=== PATIENT | female | born 1965 | race Asian ===

== ENCOUNTER 2017-06-13 20:16 | Emergency (ER) | payer SELFPAY ==
[~2017-06-13] VITALS: Ht 165.1 cm; Wt 68.0 kg
--- NOTE | 2017-06-13 20:28 | Emergency Room Report ---
History of Present Illness General Chief Complaint: Overdose Source: Patient, EMS (MARIBEL GARCIA M.D.) Present Illness HPI 51YOF BIBEMS for suspected intentional OD/SI on 0.5mg X10 clonazepam that were her mother's medication Was done at 630 because thats the time she allegedly texted her mother No previous attempts History of depression Denies coingestants, ETOH No other medical problems HPI limited d/t sedation (MARIBEL GARCIA M.D.) Allergies: Coded Allergies: No Known Allergies (Unverified , 06/13/17) Patient History Past Medical History: none, unable to obtain Past Surgical History: none, unable to obtain Pertinent Family History: none, unable to obtain Last Menstrual Period: ukn Now: No Immunizations: UTD Reviewed Nursing Documentation: PMH: Agreed, PSxH: Agreed (MARIBEL GARCIA M.D.) Nursing Documentation-PMH Past Medical History: No History, Except For History Of Psychiatric Problem: Yes - Depression (MARIBEL GARCIA M.D.) Review of Systems All Other Systems: negative except mentioned in HPI (MARIBEL GARCIA M.D.) Physical Exam Vital Signs Date Time Temp Pulse Resp B/P (MAP) Pulse Ox O2 Delivery O2 Flow Rate FiO2 06/13/17 20:08 97.9 80 20 107/56 95 Room Air Sp02 EP Interpretation: reviewed, normal General Appearance: normal inspection, well appearing, no apparent distress, alert Head: normocephalic, atraumatic Eyes: bilateral eye PERRL, bilateral eye EOMI ENT: normal ENT inspection, hearing grossly normal, normal voice Neck: normal inspection, full range of motion, supple, no bony tend Respiratory: normal inspection, lungs clear, normal breath sounds, no respiratory distress, no retraction, no wheezing Cardiovascular #1: regular rate, rhythm, no edema Gastrointestinal: normal inspection, normal bowel sounds, non tender, soft, no guarding, no hernia Genitourinary: no CVA tenderness Musculoskeletal: normal inspection, back normal, normal range of motion, Amanda' s Sign negative Neurologic: normal inspection, alert, oriented x3, responsive, tenant coordinator III-XII nml as tested, motor strength/tone normal, speech normal Psychiatric: normal inspection, judgement/insight normal, mood/affect normal Skin: normal inspection, normal color, no rash Lymphatic: normal inspection (MARIBEL GARCIA M.D.) Medical Decision Making Diagnostic Impression: Primary Impression: Drug overdose Qualified Codes: T50.902A - Poisoning by unspecified drugs, medicaments and biological substances, intentional self-harm, initial encounter Additional Impressions: Alcohol intoxication Qualified Codes: F10.920 - Alcohol use, unspecified with intoxication, uncomplicated Suicidal ideations ER Course VSS. Afebrile ETOH level >300 Urine tox negative for drugs despite endorsed benzo overdose Urine preg negative ASA, tylenol levels negative medically cleared Needs Psych eval when sober for SI Patient continues to express suicidal ideation in ED on multiple evaluation Endorsed to Dr Medrano at 930pm that patient needs psych evaluation for SI when sober. (MARIBEL GARCIA M.D.) ER Course Patient out to me for drug overdose. She was also very intoxicated. She slept in the night without any incident. At one point said that she wants to go home. But she still suicidal. So we'll get psychiatric evaluation. I told patient that she cannot leave. Will sign this patient out to Dr. Goncalves in the morning. she is medically cleared for psychiatric evaluation. (JOSE MEDRANO M.D.) ER Course The patient was reevaluated by me. The patient was noted to have negative drug screen for benzodiazepines. Patient was initially reporting suicidal thoughts however she states she feels better at this time. As she states she did not want to harm herself. The patient appears more sober at this time. Patient will followup with outpatient mental health. (Chris Goncalves) EKG Diagnostic Results Rate: normal Rhythm: NSR ST Segments: no acute changes ASA given to the pt in ED: No (MARIBEL GARCIA M.D.) Rhythm Strip Diag. Results EP Interpretation: yes Rate: 80 Rhythm: NSR, no PVC's, no ectopy (MARIBEL GARCIA M.D.) Last Vital Signs Date Time Temp Pulse Resp B/P (MAP) Pulse Ox O2 Delivery O2 Flow Rate FiO2 06/13/17 20:08 97.9 80 20 107/56 95 Room Air Status: improved (MARIBEL GARCIA M.D.) Status: improved (Chris Goncalves) Condition: Stable MARIBEL GARCIA M.D. Jun 13, 2017 20:28 JOSE MEDRANO M.D. Jun 14, 2017 05:58 Chris Goncalves Jun 14, 2017 08:49
[2017-06-13 20:53] LABS: BASOPHILS % (AUTO) 1.1 % (0.0-2.0); EOSINOPHILS % (AUTO) 2.1 % (0.0-3.0); LYMPHOCYTES % (AUTO) 36.8 % (20.0-45.0); MEAN CORPUSCULAR HEMOGLOBIN 36.1 PG (27.0-31.0); MEAN CORPUSCULAR HGB CONC 34.6 G/DL (32.0-36.0); MEAN CORPUSCULAR VOLUME 105 FL (80-99); MEAN PLATELET VOLUME 7.2 FL (6.5-10.1); MONOCYTES % (AUTO) 4.6 % (1.0-10.0); NEUTROPHILS % (AUTO) 55.3 % (45.0-75.0); PLATELET COUNT 225 K/UL (150-450); RED CELL DISTRIBUTION WIDTH 13.2 % (11.6-14.8); WHITE BLOOD COUNT 4.4 K/UL (4.8-10.8)
[2017-06-13 20:55] VITALS: BP 102/60
[2017-06-13 21:07] LABS: ACETAMINOPHEN < 10 ug/mL (10-30); ALANINE AMINOTRANSFERASE 44 U/L (3-33); ALCOHOL 322 mg/dL; ANION GAP 15 (5-15); ASPARTATE AMINO TRANSFERASE 53 U/L (5-40); CALCIUM 8.7 mg/dL (8.6-10.2); CARBON DIOXIDE 28 mEQ/L (20-30); CHLORIDE 101 mEQ/L (98-107); CREATININE 0.5 mg/dL (0.5-0.9); GLOMERULAR FILTRATION RATE > 60 mL/min (>60); HEMOLYSIS 10; POTASSIUM 3.9 mEQ/L (3.4-4.9); SODIUM 144 mEQ/L (135-145); TOTAL PROTEIN 6.8 g/dL (6.6-8.7)
[2017-06-13 22:57] VITALS: BP 98/65
[2017-06-14 02:38] VITALS: BP 103/56
[2017-06-14 05:11] VITALS: BP 102/56
[2017-06-14 09:02] VITALS: BP 113/74
[2017-06-14 09:05] VITALS: BP 113/74
--- NOTE | 2017-06-20 15:56 | Cardiology Report ---
APPROVED REPORT EKG Measurement Heart [id number] Normal sinus rhythm Normal ECG
== END 2017-06-14 09:12 | disposition home or self-care (01) ==
LOC: EDBD 20:16 → EMR 20:35
DX: T42.4X2A Poisoning by benzodiazepines, intentional self-harm, initial encounter (principal); Y92.89 Other specified places as the place of occurrence of the external cause; F10.129 Alcohol abuse with intoxication, unspecified; F32.9 Major depressive disorder, single episode, unspecified
CPT/HCPCS: 36415; 80053; 80300; 81025; 85025; 93005; 99283; G0480; 80329